=== PATIENT | female | born 1965 | race Caucasian/White ===

== ENCOUNTER 2022-02-25 20:46 | Emergency (ER) | payer SELFPAY ==
[~2022-02-25] VITALS: Ht 162.6 cm; Wt 104.3 kg
[2022-02-26 00:13] VITALS: BP 147/84
== END 2022-02-26 00:22 | disposition home or self-care (01) ==
LOC: ER 20:52
DX: S90.122A Contusion of left lesser toe(s) without damage to nail, initial encounter (principal); W23.0XXA Caught, crushed, jammed, or pinched between moving objects, initial encounter; Y93.89 Activity, other specified; Y92.89 Other specified places as the place of occurrence of the external cause; Y99.8 Other external cause status
CPT/HCPCS: 73660